=== PATIENT | female | born 1995 | race Two or more races ===

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

== ENCOUNTER 2017-06-26 12:53 | Emergency (ER) | payer MEDICAID ==
[~2017-06-26] VITALS: Ht 157.5 cm; Wt 116.2 kg
[~2017-06-26 12:53] MED LIST: PREN-96 PO
[2017-06-26 14:00] VITALS: BP 129/66
== END 2017-06-26 15:53 | disposition home or self-care (01) ==
LOC: ER 12:53
DX: H00.016 Hordeolum externum left eye, unspecified eyelid (principal); S00.12XA Contusion of left eyelid and periocular area, initial encounter; Y08.89XA Assault by other specified means, initial encounter; Y93.9 Activity, unspecified; Y92.89 Other specified places as the place of occurrence of the external cause; Y99.8 Other external cause status
CPT/HCPCS: 70450; 81025

== ENCOUNTER 2018-02-20 09:37 | Emergency (ER) | payer SELFPAY ==
[~2018-02-20] VITALS: Ht 157.5 cm; Wt 106.6 kg
[2018-02-20 10:22] LABS: Basophils # (auto) 0.1 uL; Basophils % (auto) 0.5 % (0.0-2.0); Eosinophils # (auto) 0.2 uL; Eosinophils % (auto) 1.8 % (0.0-7.0); Hematocrit 43.4 % (36.0-46.0); Hemoglobin 14.6 g/dL (12.2-16.2); Lymphocytes # (auto) 2.9 uL; Lymphocytes % (auto) 28.2 % (10.0-50.0); Mean Corpuscular Hemoglobin 31.7 pg (28.0-32.0); Mean Corpuscular Hgb Conc. 33.6 g/dL (32.0-36.0); Mean Corpuscular Volume 94.5 fL (80.0-100.0); Monocytes # (auto) 0.6 uL; Monocytes % (auto) 6.1 % (0.0-12.0); Neutrophils # (auto) 6.5 uL; Neutrophils % (auto) 63.4 % (37.0-80.0); Nucleated Red Blood Cells % 0.1 %; Platelet Count (auto) 210 10^3/uL (140-450); Red Blood Cells 4.59 10^6/uL (4.0-5.20); Red Cell Distribution Width 13.9 % (11.8-14.3); White Blood Cell 10.3 10^3/uL (4.4-10.8)
[2018-02-20 10:42] LABS: Albumin 3.8 g/dL (3.4-5.0); BUN/Creatinine Ratio 14.3; Bilirubin, Total 0.5 mg/dL (0.2-1.0); Calcium 8.6 mg/dL (8.5-10.1); Potassium 3.4 mmol/L (3.5-5.1); Total Protein 7.6 g/dL (6.4-8.2)
[2018-02-20] MEDS ORDERED: ACETAMINOPHEN 325 MG TAB PO ONE (14:32)
[2018-02-20 15:00] VITALS: BP 155/93
[2018-02-20] MEDS ORDERED: ACETAMINOPHEN 650 mg PER 20 mL UD PO ONE (15:00)
[2018-02-20 15:23] LABS: Alcohol, Urine < 3.0 mg/dL (0-5); Amphetamine Screen, Urine NEGATIVE (NEGATIVE); Barbiturate Scree,Urine NEGATIVE (NEGATIVE); Benzodiazephine Screen, Urine NEGATIVE (NEGATIVE); Cannabinoid Screen, Urine NEGATIVE (NEGATIVE); Cocaine Screen, Urine NEGATIVE (NEGATIVE); Opiate Scree,Urine NEGATIVE (NEGATIVE); Phencyclidine Screen, Urine NEGATIVE (NEGATIVE)
== END 2018-02-20 15:10 | disposition home or self-care (01) ==
LOC: ER 09:44
DX: K42.9 Umbilical hernia without obstruction or gangrene (principal); Z90.49 Acquired absence of other specified parts of digestive tract
CPT/HCPCS: 36415; 74176; 80053; 80307; 83690; 85025

== ENCOUNTER 2019-06-22 17:22 | Emergency (ER) | payer SELFPAY ==
[~2019-06-22] VITALS: Ht 160 cm; Wt 129.7 kg
[2019-06-22 17:39] VITALS: BP 132/76
[2019-06-22 18:28] LABS: Basophils # (auto) 0 uL; Basophils % (auto) 0.2 % (0.0-2.0); Eosinophils # (auto) 0.2 uL; Eosinophils % (auto) 2.2 % (0.0-7.0); Hematocrit 37.1 % (36.0-46.0); Hemoglobin 12.9 g/dL (12.2-16.2); Lymphocytes # (auto) 1.6 uL; Lymphocytes % (auto) 16.2 % (10.0-50.0); Mean Corpuscular Hemoglobin 33.4 pg (28.0-32.0); Mean Corpuscular Hgb Conc. 34.9 g/dL (32.0-36.0); Mean Corpuscular Volume 95.8 fL (80.0-100.0); Monocytes # (auto) 0.5 uL; Monocytes % (auto) 5.2 % (0.0-12.0); Neutrophils # (auto) 7.4 uL; Neutrophils % (auto) 76.2 % (37.0-80.0); Nucleated Red Blood Cells % 0.4 %; Platelet Count (auto) 183 10^3/uL (140-450); Red Blood Cells 3.87 10^6/uL (4.0-5.20); White Blood Cell 9.7 10^3/uL (4.4-10.8)
[2019-06-22 18:41] LABS: Albumin 3.1 g/dL (3.4-5.0); BUN/Creatinine Ratio 11.3; Calcium 9.1 mg/dL (8.5-10.1)
[2019-06-22 18:44] LABS: Bilirubin, Total 0.4 mg/dL (0.2-1.0); Total Protein 6.7 g/dL (6.4-8.2)
[2019-06-22 18:53] LABS: Urine Bacteria NONE SEEN /hpf (None Seen); Urine Blood Negative /uL (Negative); Urine Mucus FEW (None Seen); Urine WBC 3 /hpf (0 - 5)
== END 2019-06-22 23:22 | disposition left against medical advice (07) ==
LOC: ER 17:22
DX: R10.9 Unspecified abdominal pain (principal); Z53.21 Procedure and treatment not carried out due to patient leaving prior to being seen by health care provider
CPT/HCPCS: 36415; 80053; 81001; 84702; 85025

== ENCOUNTER 2019-07-17 20:53 | Observation (INO) | payer MEDICAID ==
[~2019-07-17] VITALS: Ht 160 cm; Wt 128.4 kg
--- NOTE | 2019-07-17 22:07 | NUR ---
2052 pt. arrives ambulatory with complaints of abdominal cramping and back pain started about 1 hour ago. Pt. denies vaginal bleeding, denies vaginal leaking, denies having sexual intercourse today.
--- NOTE | 2019-07-17 22:17 | NUR ---
2104 Pt. [facility] provided and urine sample collected from pt.
--- NOTE | 2019-07-17 22:30 | NUR ---
Dr. Payton erickson.
--- NOTE | 2019-07-17 22:50 | NUR ---
Pt. discharged ambulatory, no vaginal bleeding no vaginal leaking, contractions absent upon pappation and use of Picacho noted. Pt. given copies of DC instructions, both PTL precautions and Kick counts. Pt. to keep OB appointment scheduled on 06/28/[address] Myrick.
--- NOTE | 2019-07-17 22:58 | NUR ---
[id number] Dr. Cain return page. Reported all assessment findings reported pt. C/O back and abdominal pain. Reviewed previous Ultrasound and Pt. HX. Strip reviewed as well as heart rate per doppler, and UC absent from toco and palaption.
--- NOTE | 2019-07-17 23:01 | NUR ---
[address] Cain to discharge pt. with PTL precautions and kick counts and pt. to keep DrFederico appointment with Dr. Myrick as scheduled.
== END 2019-07-17 22:50 | disposition home or self-care (01) | DRG 566 ==
LOC: LDRP 20:53
PROVIDERS: ADMIT Specialist; ATTEND Specialist
DX: O26.892 Other specified pregnancy related conditions, second trimester (principal); M54.9 Dorsalgia, unspecified; R10.9 Unspecified abdominal pain; O99.89 Other specified diseases and conditions complicating pregnancy, childbirth and the puerperium; Z3A.22 22 weeks gestation of pregnancy
CPT/HCPCS: 59025; 81002; G0378

== ENCOUNTER 2019-08-05 15:46 | Observation (INO) | payer MEDICAID | END 2019-08-05 16:45 | disposition home or self-care (01) | DRG 566 | LOC: LDRP 15:46 | PROVIDERS: ADMIT Specialist; ATTEND Specialist | DX: O36.8130 Decreased fetal movements, third trimester, not applicable or unspecified (principal); O26.892 Other specified pregnancy related conditions, second trimester; M54.9 Dorsalgia, unspecified; O99.89 Other specified diseases and conditions complicating pregnancy, childbirth and the puerperium; R05 Cough; R50.9 Fever, unspecified; Z3A.25 25 weeks gestation of pregnancy | CPT/HCPCS: 59025; 81002; G0378 ==

== ENCOUNTER 2019-09-29 10:38 | Observation (INO) | payer MEDICAID | END 2019-09-29 12:35 | disposition home or self-care (01) | DRG 566 | LOC: LDRP 10:38 | PROVIDERS: ADMIT Obstetrics & Gynecology; ATTEND Obstetrics & Gynecology | DX: O36.8130 Decreased fetal movements, third trimester, not applicable or unspecified (principal); J02.9 Acute pharyngitis, unspecified; O99.513 Diseases of the respiratory system complicating pregnancy, third trimester; Z3A.33 33 weeks gestation of pregnancy | CPT/HCPCS: 59025; 76818; 81002; G0378 ==

== ENCOUNTER 2019-10-16 11:15 | Observation (INO) | payer MEDICAID ==
[2019-10-16 12:16] LABS: Basophils # (auto) 0 uL; Basophils % (auto) 0.3 % (0.0-2.0); Eosinophils # (auto) 0 uL; Eosinophils % (auto) 0.4 % (0.0-7.0); Hematocrit 32.7 % (36.0-46.0); Hemoglobin 11.6 g/dL (12.2-16.2); Lymphocytes # (auto) 1.4 uL; Lymphocytes % (auto) 16.4 % (10.0-50.0); Mean Corpuscular Hemoglobin 33.8 pg (28.0-32.0); Mean Corpuscular Hgb Conc. 35.6 g/dL (32.0-36.0); Monocytes # (auto) 0.5 uL; Monocytes % (auto) 6.2 % (0.0-12.0); Neutrophils # (auto) 6.7 uL; Neutrophils % (auto) 76.7 % (37.0-80.0); Platelet Count (auto) 179 10^3/uL (140-450); Red Blood Cells 3.44 10^6/uL (4.0-5.20); Red Cell Distribution Width 15.2 % (11.8-14.3); White Blood Cell 8.8 10^3/uL (4.4-10.8)
[2019-10-16 12:39] LABS: INR 0.99 (0.9-1.15); Partial Thromboplastin Time 28.5 sec (23.64-32.05)
[2019-10-16 12:41] LABS: Urine Bacteria FEW /hpf (None Seen); Urine Blood Negative /uL (Negative); Urine Mucus FEW (None Seen); Urine Specific Gravity 1.031 (1.001-1.035); Urine WBC 10 /hpf (0 - 5)
[2019-10-16 12:44] LABS: Albumin 2.5 g/dL (3.4-5.0); Calcium 8.5 mg/dL (8.5-10.1); Potassium 3.7 mmol/L (3.5-5.1)
[2019-10-16 12:48] LABS: BUN/Creatinine Ratio 14.8; Bilirubin, Total 0.4 mg/dL (0.2-1.0); Total Protein 6.1 g/dL (6.4-8.2); Uric Acid 4.8 mg/dL (2.6-6.0)
== END 2019-10-16 13:30 | disposition home or self-care (01) | DRG 566 ==
LOC: LDRP 11:15
PROVIDERS: ADMIT Specialist; ATTEND Specialist
DX: O13.3 Gestational [pregnancy-induced] hypertension without significant proteinuria, third trimester (principal); Z3A.35 35 weeks gestation of pregnancy
CPT/HCPCS: 36415; 59025; 80053; 81001; 81002; 84550; 85025; 85610; 85730; G0378

== ENCOUNTER 2019-10-18 08:56 | Observation (INO) | payer MEDICAID ==
[2019-10-18 09:53] LABS: Protein, Urine 11.9 mg/dL (0.0-11.9)
[2019-10-18 10:20] LABS: 24 Hr. Total Protein, Urine 373.6 mg/24 Hr (<149.1)
== END 2019-10-18 10:55 | disposition home or self-care (01) | DRG 566 ==
LOC: LDRP 08:56
PROVIDERS: ADMIT Obstetrics & Gynecology; ATTEND Obstetrics & Gynecology
DX: O13.3 Gestational [pregnancy-induced] hypertension without significant proteinuria, third trimester (principal); O99.89 Other specified diseases and conditions complicating pregnancy, childbirth and the puerperium; D72.829 Elevated white blood cell count, unspecified; Z3A.35 35 weeks gestation of pregnancy
CPT/HCPCS: 59025; 81002; 84156; G0378

== ENCOUNTER 2019-10-23 08:48 | Observation (INO) | payer MEDICAID | END 2019-10-23 10:11 | disposition home or self-care (01) | DRG 566 | LOC: LDRP 08:48 | PROVIDERS: ADMIT Specialist; ATTEND Specialist | DX: O13.3 Gestational [pregnancy-induced] hypertension without significant proteinuria, third trimester (principal); Z3A.36 36 weeks gestation of pregnancy | CPT/HCPCS: 59025; 76818; 81002; G0378 ==

== ENCOUNTER 2019-10-25 08:53 | Observation (INO) | payer MEDICAID ==
[~2019-10-25] VITALS: Ht 160 cm; Wt 132.9 kg
== END 2019-10-25 10:38 | disposition home or self-care (01) | DRG 566 ==
LOC: LDRP 08:53
PROVIDERS: ADMIT Obstetrics & Gynecology; ATTEND Obstetrics & Gynecology
DX: O13.3 Gestational [pregnancy-induced] hypertension without significant proteinuria, third trimester (principal); O26.893 Other specified pregnancy related conditions, third trimester; R10.30 Lower abdominal pain, unspecified; Z3A.36 36 weeks gestation of pregnancy
CPT/HCPCS: 59025; 76818; 81002; G0378

== ENCOUNTER 2019-10-26 23:38 | Observation (INO) | payer MEDICAID | END 2019-10-27 00:40 | disposition home or self-care (01) | DRG 566 | LOC: LDRP 23:38 | PROVIDERS: ADMIT Specialist; ATTEND Specialist | DX: O62.9 Abnormality of forces of labor, unspecified (principal); O26.893 Other specified pregnancy related conditions, third trimester; M54.9 Dorsalgia, unspecified; Z3A.37 37 weeks gestation of pregnancy | CPT/HCPCS: 59025; G0378 ==

== ENCOUNTER 2019-10-29 13:43 | Observation (INO) | payer MEDICAID | END 2019-10-29 15:00 | disposition home or self-care (01) | DRG 566 | LOC: LDRP 13:43 | PROVIDERS: ADMIT Specialist; ATTEND Specialist | DX: O13.3 Gestational [pregnancy-induced] hypertension without significant proteinuria, third trimester (principal); Z3A.37 37 weeks gestation of pregnancy | CPT/HCPCS: 59025; 76818; 81002; G0378 ==

== ENCOUNTER 2019-11-01 10:04 | Observation (INO) | payer MEDICAID ==
[2019-11-01 11:56] LABS: Basophils # (auto) 0 uL; Basophils % (auto) 0.3 % (0.0-2.0); Eosinophils # (auto) 0 uL; Eosinophils % (auto) 0.4 % (0.0-7.0); Hematocrit 33.8 % (36.0-46.0); Hemoglobin 11.5 g/dL (12.2-16.2); Lymphocytes # (auto) 1.7 uL; Lymphocytes % (auto) 18.2 % (10.0-50.0); Mean Corpuscular Hemoglobin 32.3 pg (28.0-32.0); Mean Corpuscular Hgb Conc. 33.9 g/dL (32.0-36.0); Mean Corpuscular Volume 95.3 fL (80.0-100.0); Monocytes # (auto) 0.5 uL; Monocytes % (auto) 5.8 % (0.0-12.0); Neutrophils # (auto) 7.1 uL; Neutrophils % (auto) 75.3 % (37.0-80.0); Nucleated Red Blood Cells % 0.1 %; Platelet Count (auto) 185 10^3/uL (140-450); Red Blood Cells 3.55 10^6/uL (4.0-5.20); Red Cell Distribution Width 15.4 % (11.8-14.3); White Blood Cell 9.5 10^3/uL (4.4-10.8)
[2019-11-01 12:13] LABS: Albumin 2.5 g/dL (3.4-5.0); Calcium 8.4 mg/dL (8.5-10.1); Potassium 3.6 mmol/L (3.5-5.1)
[2019-11-01 12:17] LABS: Bilirubin, Total 0.3 mg/dL (0.2-1.0); Total Protein 6.2 g/dL (6.4-8.2); Uric Acid 4.2 mg/dL (2.6-6.0)
== END 2019-11-01 11:50 | disposition home or self-care (01) | DRG 566 ==
LOC: LDRP 10:04
PROVIDERS: ADMIT Obstetrics & Gynecology; ATTEND Obstetrics & Gynecology
DX: O13.3 Gestational [pregnancy-induced] hypertension without significant proteinuria, third trimester (principal); Z3A.37 37 weeks gestation of pregnancy
CPT/HCPCS: 36415; 59025; 76818; 80053; 81002; 84550; 85025; G0378

== ENCOUNTER 2019-11-05 09:15 | Observation (INO) | payer MEDICAID ==
[~2019-11-05] VITALS: Ht 160 cm; Wt 132.9 kg
== END 2019-11-05 10:35 | disposition home or self-care (01) | DRG 566 ==
LOC: LDRP 09:15
PROVIDERS: ADMIT Specialist; ATTEND Specialist
DX: O12.13 Gestational proteinuria, third trimester (principal); O13.3 Gestational [pregnancy-induced] hypertension without significant proteinuria, third trimester; O40.3XX0 Polyhydramnios, third trimester, not applicable or unspecified; Z3A.38 38 weeks gestation of pregnancy
CPT/HCPCS: 59025; 76818; 81002; G0378

== ENCOUNTER 2019-11-08 08:55 | Observation (INO) | payer MEDICAID ==
[2019-11-08 10:45] LABS: Protein, Urine 18.4 mg/dL (0.0-11.9)
[2019-11-08 10:54] LABS: Urine Bacteria FEW /hpf (None Seen); Urine Blood Negative /uL (Negative); Urine Specific Gravity 1.012 (1.001-1.035); Urine WBC 10 /hpf (0 - 5)
[2019-11-08 13:03] LABS: 24 Hr. Total Protein, Urine 577.7 mg/24 Hr (<149.1)
== END 2019-11-08 11:05 | disposition home or self-care (01) | DRG 566 ==
LOC: LDRP 08:55
PROVIDERS: ADMIT Obstetrics & Gynecology; ATTEND Obstetrics & Gynecology
DX: O13.3 Gestational [pregnancy-induced] hypertension without significant proteinuria, third trimester (principal); Z3A.38 38 weeks gestation of pregnancy
CPT/HCPCS: 59025; 76818; 81001; 81002; 84156; G0378

== ENCOUNTER 2019-11-11 18:00 | Observation (INO) | payer MEDICAID | END 2019-11-11 19:45 | disposition home or self-care (01) | DRG 566 | LOC: LDRP 18:00 | PROVIDERS: ADMIT Specialist; ATTEND Specialist | DX: O26.893 Other specified pregnancy related conditions, third trimester (principal); R10.2 Pelvic and perineal pain; Z3A.39 39 weeks gestation of pregnancy | CPT/HCPCS: 59025; 81002; G0378 ==

== ENCOUNTER 2019-11-12 09:21 | Observation (INO) | payer MEDICAID | END 2019-11-12 10:30 | disposition home or self-care (01) | DRG 566 | LOC: LDRP 09:21 | PROVIDERS: ADMIT Obstetrics & Gynecology; ATTEND Obstetrics & Gynecology | DX: O13.3 Gestational [pregnancy-induced] hypertension without significant proteinuria, third trimester (principal); O36.63X0 Maternal care for excessive fetal growth, third trimester, not applicable or unspecified; O40.3XX0 Polyhydramnios, third trimester, not applicable or unspecified; O99.214 Obesity complicating childbirth; E66.01 Morbid (severe) obesity due to excess calories; O14.90 Unspecified pre-eclampsia, unspecified trimester; Z3A.39 39 weeks gestation of pregnancy | CPT/HCPCS: 59025; 81002; G0378 ==

== ENCOUNTER 2019-11-13 03:58 | Inpatient (IN) | payer MEDICAID ==
[~2019-11-13] VITALS: Ht 165.1 cm; Wt 132.9 kg
[2019-11-13] VITALS (16 sets, daily range): BP systolic 82–115; BP diastolic 45–73
[2019-11-13] MEDS ORDERED: LACTATED RINGER'S 1,000 ML IV SCH (04:14)
[2019-11-13 04:53] LABS: Basophils # (auto) 0 uL; Basophils % (auto) 0.3 % (0.0-2.0); Eosinophils # (auto) 0 uL; Eosinophils % (auto) 0.4 % (0.0-7.0); Hematocrit 33.6 % (36.0-46.0); Hemoglobin 11.4 g/dL (12.2-16.2); Lymphocytes % (auto) 14.1 % (10.0-50.0); Mean Corpuscular Hemoglobin 32.1 pg (28.0-32.0); Mean Corpuscular Hgb Conc. 34.1 g/dL (32.0-36.0); Mean Corpuscular Volume 94.1 fL (80.0-100.0); Monocytes # (auto) 0.7 uL; Monocytes % (auto) 9.3 % (0.0-12.0); Neutrophils # (auto) 5.4 uL; Neutrophils % (auto) 75.9 % (37.0-80.0); Platelet Count (auto) 158 10^3/uL (140-450); Red Blood Cells 3.56 10^6/uL (4.0-5.20); Red Cell Distribution Width 15.4 % (11.8-14.3); White Blood Cell 7.1 10^3/uL (4.4-10.8)
[2019-11-13 05:02] LABS: Urine Bacteria FEW /hpf (None Seen); Urine Blood Negative /uL (Negative); Urine Mucus FEW (None Seen); Urine WBC 12 /hpf (0 - 5)
[2019-11-13 05:09] LABS: INR 0.98 (0.9-1.15)
[2019-11-13 05:14] LABS: Alcohol, Urine < 3.0 mg/dL (0-5); Amphetamine Screen, Urine NEGATIVE (NEGATIVE); Barbiturate Scree,Urine NEGATIVE (NEGATIVE); Benzodiazephine Screen, Urine NEGATIVE (NEGATIVE); Cannabinoid Screen, Urine NEGATIVE (NEGATIVE); Cocaine Screen, Urine NEGATIVE (NEGATIVE); Opiate Scree,Urine NEGATIVE (NEGATIVE); Phencyclidine Screen, Urine NEGATIVE (NEGATIVE)
[2019-11-13 05:14] LABS: Albumin 2.5 g/dL (3.4-5.0); Potassium 3.7 mmol/L (3.5-5.1)
[2019-11-13 05:19] LABS: Bilirubin, Total 0.5 mg/dL (0.2-1.0); Total Protein 6.5 g/dL (6.4-8.2)
[2019-11-13] MEDS ORDERED: LIDOCAINE 1% HCL (LOCAL ANESTH.) INJ 20ML MDV ONE (07:16)
[2019-11-13] MEDS ORDERED: TETRACAINE 1% INJ 2 ML VIAL IJ ONE (07:16)
[2019-11-13] MEDS ORDERED: SUCCINYLCHOLINE CHLORIDE 20 MG/ML 10ML VIAL IV ONE (07:18)
[2019-11-13] MEDS ORDERED: fentaNYL CITRATE 100 MCG/2 ML VL ONE (07:24)
[2019-11-13] MEDS ORDERED: MIDAZOLAM HCL 1MG/1ML-2 ML VIAL ONE ×2 (07:24→07:48)
[2019-11-13] MEDS ORDERED: ceFAZolin 1GM/50ML 50 ML IV SCH (07:30)
[2019-11-13] MEDS ORDERED: ONDANSETRON HCL 4 MG/2 ML VIAL IV PRN (07:30)
[2019-11-13] MEDS ORDERED: ePHEDrine SULFATE 50 MG/ML AMP ONE (07:36)
[2019-11-13] MEDS ORDERED: ceFAZolin 1GM VL ONE (07:36)
[2019-11-13] MEDS ORDERED: OXYTOCIN 10 UNIT/ML 10ML VIAL ONE (07:36)
[2019-11-13] MEDS ORDERED: ONDANSETRON HCL 4 MG/2 ML VIAL ONE (07:36)
[2019-11-13] MEDS ORDERED: SODIUM CHLORIDE LOCK 10 ML ONE (07:36)
[2019-11-13] MEDS ORDERED: BUPIVACAINE/DEXTROSE MPF 0.75% 2 ML AMP IT ONE (07:54)
[2019-11-13] MEDS ORDERED: EPINEPHrine HCL 1 MG/1 ML AMP ONE (07:54)
--- NOTE | 2019-11-13 08:00 | NUR ---
CALLED PACU FOR INFANT TO INITIATE . PER Karla HATHAWAY TOWN MANAGER MOTHER STATED SHE WANTS TO BOTTLE FEED. WILL GIVEN FORMULA PER MOTHERS REQUEST.
[2019-11-13] MEDS ORDERED: NALOXONE HCL 0.4 MG/ML VIAL IV PRN (09:15)
[2019-11-13] MEDS ORDERED: diphenhdrAMINE HCL 50 MG/1 ML VL IV PRN (09:15)
[2019-11-13] MEDS ORDERED: MORPHINE SULFATE 4 MG/ML SYR/VIAL IV PRN (09:15)
[2019-11-13] MEDS ORDERED: fentaNYL CITRATE 100 MCG/2 ML VL IV PRN (09:15)
[2019-11-13] MEDS ORDERED: METOCLOPRAMIDE HCL 5MG/ml INJ 2ml VIAL IV PRN (09:15)
[2019-11-13] MEDS ORDERED: HYDROmorphone HCL 2 MG/ML VL IV PRN (09:15)
--- NOTE | 2019-11-13 09:31 | NUR ---
REPORT RECEIVED FROM LIFE ENRICHMENT MANAGER ANTIONE HATHAWAY, NOTIFIED THAT PT WILL BE OVER SHORTLY. AWAITING ARRIVAL.
--- NOTE | 2019-11-13 09:40 | NUR ---
Post Op for LDRP: Received patient from PACU via bed to room 1-7B from [employer]ETHOD[employer] ARCHITECT Karla Amado. Patient A/A/Ox4, abdominal binder and bilateral SCD's are in place and compressing pts bilateral lower extremities, 30units pitocin in 1000ml LR bag per WEBMETHODS ARCHITECT Karla Amado placed on pump and infusing per order, incisional site dressing clean/dry/intact and Beckett Catheter to gravity draining clear yellow urine. Incentive Spirometer at bedside and instruction on proper use with return demonstration done by patient. Sahara care provided by this RN, new pad and white amanda placed under patient. Pt brought over on 1 liter oxygen, pts o2 saturation now is 91%, vital sings stable. Pts lung sounds are clear bilaterally, pts respirations are even and nonlabored. Will continue to monitor.
--- NOTE | 2019-11-13 10:10 | NUR ---
PTS VITAL SIGNS STABLE, 1 LITER O2 REMOVED, PT 02 SATURATION ON ROOM AIR IS 95%, NO DISTRESS NOTED. WILL CONTINUE TO MONITOR.
--- NOTE | 2019-11-13 11:00 | NUR ---
Report received from Tatiana Garcia RN on stable pt. Assumed care.
--- NOTE | 2019-11-13 11:00 | NUR ---
REPORT GIVEN TO Rohan VIRGEN ON STABLE PATIENT, PT IS ON ROOM AIR, O2 SATURATION 95%, RESPIRATIONS EVEN AND NONLABORED, PTS ABDOMINAL DRESSING CLEAN, DRY, INTACT, NO DRAINAGE NOTED, FUNDUS IS FIRM 2 BELOW UMBILICUS, SMALL RUBRA BLEEDING NOTED, RELINQUISHED CARE.
--- NOTE | 2019-11-13 12:00 | NUR ---
Lower abdominal incision dressing c/d/i, abdominal binder in place and scd's on. Incentive spirometer at bedside, pt educated on use and return demonstration returned. Maria care and catheter care provided. New maria pad applied and new underpad placed. Pt tolerated well, no signs of distress or discomfort noted. Addendum: 11/13/19 at 1345 by Maricarmen Rivera RN Amended: Links added.
[2019-11-13] MEDS: LACT. RINGERS/OXYTOCIN 20UNITS 1,000 ML IV SCH ×3 (12:41→21:56)
--- NOTE | 2019-11-13 13:21 | NUR ---
BP noted to be low, pt denies any dizziness. 500 LR fluid bolus started. Maria care and catheter care provided with a small amount of bleeding noted. New maria pad and underpad applied.
--- NOTE | 2019-11-13 13:50 | NUR ---
Dr. Myrick informed of all VS, hourly urine outputs and bleeding trends. Dr. Myrick also informed that 500 LR fluid bolus started. No new orders received at this time, continue to monitor pt.
[2019-11-13] MEDS: ceFAZolin 1GM/50ML 50 ML IV SCH (15:50)
--- NOTE | 2019-11-13 17:55 | NUR ---
Maria care and catheter care provided. New underpad and maria pad placed. Pt tolerated well, no signs of distress or discomfort noted.
--- NOTE | 2019-11-13 18:25 | NUR ---
Report given to Rohan Garcia RN on stable pt. Relinquished care. Addendum: 11/13/19 at 1841 by Maricarmen Rivera RN Amended: Links added.
[2019-11-13 19:48] LABS: Basophils # (auto) 0 uL; Basophils % (auto) 0.2 % (0.0-2.0); Eosinophils # (auto) 0 uL; Eosinophils % (auto) 0.7 % (0.0-7.0); Hematocrit 28.7 % (36.0-46.0); Hemoglobin 9.8 g/dL (12.2-16.2); Lymphocytes % (auto) 17.1 % (10.0-50.0); Mean Corpuscular Hemoglobin 32.4 pg (28.0-32.0); Mean Corpuscular Hgb Conc. 34.3 g/dL (32.0-36.0); Mean Corpuscular Volume 94.5 fL (80.0-100.0); Monocytes # (auto) 0.4 uL; Monocytes % (auto) 7.7 % (0.0-12.0); Neutrophils # (auto) 4.2 uL; Neutrophils % (auto) 74.3 % (37.0-80.0); Platelet Count (auto) 138 10^3/uL (140-450); Red Blood Cells 3.04 10^6/uL (4.0-5.20); Red Cell Distribution Width 15.6 % (11.8-14.3); White Blood Cell 5.6 10^3/uL (4.4-10.8)
[2019-11-13] MEDS: MORPHINE SULF INJ 2 MG/ML SYRINGE 1ML IV PRN (20:34)
[2019-11-13] MEDS: guaiFENesin-DM 100/10mg/5ml SYR PO PRN (21:00)
--- NOTE | 2019-11-13 21:30 | NUR ---
Ambulation: Patient OOB with standby assistance by RN. Patient ambulated to chair with steady gait. Patient remains with alston catheter at this time. Clean gown provided and bed linen changed. Patient ambulated in hallway x1 and back to bed with steady gait and no distress noted.
[2019-11-13] MEDS ORDERED: ACETAMINOPHEN IV 1000 MG/100ML (10MG/ML) IV ONE (22:00)
[2019-11-14] MEDS: ceFAZolin 1GM/50ML 50 ML IV SCH ×4 (00:06→22:04)
[2019-11-14 03:00] VITALS: BP 99/49
[2019-11-14] MEDS: MORPHINE SULF INJ 2 MG/ML SYRINGE 1ML IV PRN ×2 (03:11→07:45)
[2019-11-14] MEDS: guaiFENesin-DM 100/10mg/5ml SYR PO PRN ×2 (03:11→08:09)
[2019-11-14] MEDS: LACT. RINGERS/OXYTOCIN 20UNITS 1,000 ML IV SCH (03:29)
--- NOTE | 2019-11-14 04:50 | NUR ---
Alston catheter dc'd Order to discontinue alston catheter. Alston dc'd with clean technique following deflation of balloon. Patient tolerated well with no complaints of pain. Continue care.
--- NOTE | 2019-11-14 06:03 | NUR ---
Report received from Rohan Garcia RN on stable pt. Assumed care. Addendum: 11/14/19 at 1327 by Maricarmen Rivera RN Amended: Links added.
[2019-11-14 06:25] LABS: Basophils # (auto) 0 uL; Basophils % (auto) 0.4 % (0.0-2.0); Eosinophils # (auto) 0 uL; Eosinophils % (auto) 0.5 % (0.0-7.0); Hematocrit 30.8 % (36.0-46.0); Hemoglobin 10.7 g/dL (12.2-16.2); Lymphocytes # (auto) 0.9 uL; Lymphocytes % (auto) 12.5 % (10.0-50.0); Mean Corpuscular Hemoglobin 33.1 pg (28.0-32.0); Mean Corpuscular Hgb Conc. 34.8 g/dL (32.0-36.0); Mean Corpuscular Volume 94.9 fL (80.0-100.0); Monocytes # (auto) 0.4 uL; Monocytes % (auto) 5.9 % (0.0-12.0); Neutrophils # (auto) 5.8 uL; Neutrophils % (auto) 80.7 % (37.0-80.0); Platelet Count (auto) 149 10^3/uL (140-450); Red Blood Cells 3.25 10^6/uL (4.0-5.20); Red Cell Distribution Width 15.7 % (11.8-14.3); White Blood Cell 7.2 10^3/uL (4.4-10.8)
[2019-11-14 07:05] VITALS: BP 107/67
--- NOTE | 2019-11-14 07:05 | NUR ---
Lower abdominal incision open to air, well approximated with luc intact. No redness, drainage, or bleeding noted from site. Abdominal binder in place. Incentive spirometer at bedside, pt educated on the importance of using IS and also ambulating. Pt verbalizes understanding. Addendum: 11/14/19 at 1357 by Maricarmen Rivera RN Amended: Links added.
[2019-11-14] MEDS ORDERED: OXYTOCIN 10UNIT/ML 1ML VIAL ONE (07:11)
[2019-11-14] MEDS ORDERED: miSOPROStol 100 mcg TAB ONE (07:15)
[2019-11-14] MEDS ORDERED: METHYLERGONOVINE MALEATE 0.2 MG/ML AMP IM ONE (07:15)
[2019-11-14] MEDS ORDERED: LACTATED RINGER'S 1,000 ML IV SCH (08:42)
[2019-11-14] MEDS ORDERED: BISACODYL 10 MG RECT SUPP PR PRN (08:45)
[2019-11-14] MEDS ORDERED: HYDROcodone-ACET 5/325MG TAB PO PRN (08:45)
[2019-11-14] MEDS: IBUPROFEN 800 MG TAB PO PRN ×2 (09:38→20:52)
[2019-11-14] MEDS: DOCUSATE CALCIUM 240 MG CAP PO SCH (09:38)
[2019-11-14 11:07] VITALS: BP 124/82
[2019-11-14] MEDS: SIMETHICONE 80 MG CHEWABLE TABLET PO SCH ×3 (12:08→22:04)
[2019-11-14] MEDS: HYDROcodone-ACET 5/325MG TAB PO PRN ×2 (12:08→17:45)
[2019-11-14 14:51] VITALS: BP 111/71
--- NOTE | 2019-11-14 18:25 | NUR ---
Report given to Dylon Wilkerson RN on stable pt. Relinquished care. Addendum: 11/14/19 at 1841 by Maricarmen Rivera RN Amended: Links added.
[2019-11-14 19:00] VITALS: BP 99/66
[2019-11-14 22:49] VITALS: BP 97/51
[2019-11-15] MEDS: HYDROcodone-ACET 5/325MG TAB PO PRN ×5 (00:24→22:55)
[2019-11-15 02:57] VITALS: BP 99/60
[2019-11-15] MEDS: SIMETHICONE 80 MG CHEWABLE TABLET PO SCH ×4 (05:36→21:58)
[2019-11-15] MEDS: ceFAZolin 1GM/50ML 50 ML IV SCH ×3 (05:37→21:58)
[2019-11-15] MEDS: IBUPROFEN 800 MG TAB PO PRN ×2 (06:02→15:30)
--- NOTE | 2019-11-15 10:00 | NUR ---
Explained how to use breast pump manually and with electric pump.
[2019-11-15] MEDS: DOCUSATE CALCIUM 240 MG CAP PO SCH (10:29)
[2019-11-15 11:00] VITALS: BP 98/58
[2019-11-15 16:00] VITALS: BP 122/82
[2019-11-15 18:30] VITALS: BP 138/64
[2019-11-15] MEDS ORDERED: guaiFENesin-DM 100/10mg/5ml SYR ONE (19:02)
[2019-11-15] MEDS: guaiFENesin-DM 100/10mg/5ml SYR PO PRN (19:12)
[2019-11-15 22:59] VITALS: BP 98/61
[2019-11-16] MEDS: IBUPROFEN 800 MG TAB PO PRN (02:56)
[2019-11-16 03:00] VITALS: BP 112/66
[2019-11-16] MEDS: SIMETHICONE 80 MG CHEWABLE TABLET PO SCH (05:30)
[2019-11-16] MEDS: ceFAZolin 1GM/50ML 50 ML IV SCH (05:30)
[2019-11-16] MEDS: HYDROcodone-ACET 5/325MG TAB PO PRN ×2 (05:40→11:04)
[2019-11-16 07:00] VITALS: BP 120/81
[2019-11-16] MEDS: DOCUSATE CALCIUM 240 MG CAP PO SCH (10:55)
[2019-11-16 11:00] VITALS: BP 124/88
--- NOTE | 2019-11-16 11:40 | NUR ---
C/S Staple Removal DC Note: Orders received to remove luc. Luc removed using sterile technique. Lower abdominal incision approximated, no drainage/redness/inflammation visualized at time of removal. Steri-strips applied. Education provided on incisional care. Patient verbalized understanding and willingness to comply to instructions/teaching provided.
--- NOTE | 2019-11-16 11:42 | NUR ---
Discharge: Discharge instructions given as ordered. Pt encouraged to follow up with CLASS C DRIVER as instructed. All questions and concerns addressed. Patient verbalized understanding. Medication reconciliation completed and copy given to patient. All required/requested vaccines given and copies of vaccinations given to patient. Patient encouraged to prepare to depart unit. Signed: 11/16/19 at 1143 by KRISTOPHER BLACK SN <Co-Signature Required> Co-Signed: 11/16/19 at 1143 by Lucia Morgan RN
--- NOTE | 2019-11-16 12:00 | NUR ---
Discharge: Patient ambulated to vehicle with all personal belongings, accompanied by staff and family member. No distress noted at time of departure, no adverse changes in status since initial assessment. Signed: 11/16/19 at 1211 by KRISTOPHER BLACK <Co-Signature Required> Co-Signed: 11/16/19 at 1211 by Lucia Morgan RN
== END 2019-11-16 12:00 | disposition home or self-care (01) | DRG 540 ==
LOC: LDRP 03:58
PROVIDERS: ADMIT Obstetrics & Gynecology; ATTEND Obstetrics & Gynecology
PROC: 10D00Z1 Extraction of Products of Conception, Low, Open Approach (ICD-10-PCS; principal; 2019-11-13 07:31)
DX: O36.63X0 Maternal care for excessive fetal growth, third trimester, not applicable or unspecified (principal); E66.01 Morbid (severe) obesity due to excess calories; O40.3XX0 Polyhydramnios, third trimester, not applicable or unspecified; D64.9 Anemia, unspecified; O99.02 Anemia complicating childbirth; O99.214 Obesity complicating childbirth; Z3A.39 39 weeks gestation of pregnancy; Z37.0 Single live birth
CPT/HCPCS: 36415; 51702; 59025; 80053; 80307; 81001; 84112; 85025; 85610; 85730; 86592; 86850; 86900; 86901; 94762; 96361; 96366; 96374; 96375; G0378; J0131; J0171; J0330; J0690; J2001; J2250; J2405; J2590

== ENCOUNTER 2023-01-08 14:06 | Emergency (ER) | payer MEDICAID ==
[~2023-01-08] VITALS: Ht 160 cm; Wt 142.0 kg
[2023-01-08 14:42] VITALS: BP 117/78
[2023-01-08 15:17] LABS: Basophils # (auto) 0 10 ^3/uL (0-0.2); Basophils % (auto) 0.8 % (0.0-2.0); Eosinophils # (auto) 0.1 10 ^3/uL (0-0.8); Eosinophils % (auto) 1.5 % (0.0-7.0); Hematocrit 38.7 % (36.0-46.0); Hemoglobin 13.4 g/dL (12.2-16.2); Lymphocytes # (auto) 1.2 10 ^3/uL (0.4-5.4); Lymphocytes % (auto) 20.7 % (10.0-50.0); Mean Corpuscular Hemoglobin 31.9 pg (28.0-32.0); Mean Corpuscular Hgb Conc. 34.6 g/dL (32.0-36.0); Mean Corpuscular Volume 92.1 fL (80.0-100.0); Monocytes # (auto) 0.4 10 ^3/uL (0-1.3); Monocytes % (auto) 6.9 % (0.0-12.0); Neutrophils % (auto) 70.1 % (37.0-80.0); Nucleated Red Blood Cells % 0.1 %; Red Cell Distribution Width 15.2 % (11.8-14.3); White Blood Cell 5.7 10^3/uL (4.4-10.8)
[2023-01-08 15:52] LABS: Albumin 3.6 g/dL (3.4-5.0); BUN/Creatinine Ratio 11.9 (10.0-20.0); Calcium 8.7 mg/dL (8.5-10.1); Potassium 4.2 mmol/L (3.5-5.1)
[2023-01-08 15:56] LABS: Bilirubin, Total 0.5 mg/dL (0.2-1.0); Total Protein 6.3 g/dL (6.4-8.2)
== END 2023-01-08 18:59 | disposition home or self-care (01) ==
LOC: ER 14:06
DX: K62.5 Hemorrhage of anus and rectum (principal)
CPT/HCPCS: 36415; 80053; 85025

== ENCOUNTER 2023-10-04 09:51 | Emergency (ER) | payer MEDICAID ==
[~2023-10-04] VITALS: Ht 162.6 cm; Wt 115.7 kg
[2023-10-04 11:00] LABS: Urine Bacteria FEW /hpf (None Seen); Urine Blood Negative /uL (Negative); Urine Clarity Clear (Clear); Urine Color Yellow (Yellow); Urine Protein, UAD Negative (Negative); Urine Specific Gravity 1.013 (1.001-1.035); Urine Urobilinogen Normal (Negative); Urine WBC 1 /hpf (0 - 5); Urine pH 5.5 (5.0-8.0)
[2023-10-04 13:49] VITALS: BP 124/70; TEMP 98
[2023-10-04 13:51] VITALS: PULSE 88; RESP 18; O2SAT 97
== END 2023-10-04 14:14 | disposition home or self-care (01) ==
LOC: ER 09:51
DX: O26.891 Other specified pregnancy related conditions, first trimester (principal); L50.9 Urticaria, unspecified; Z90.49 Acquired absence of other specified parts of digestive tract; Z3A.01 Less than 8 weeks gestation of pregnancy
CPT/HCPCS: 81001; 81025

== ENCOUNTER 2023-10-17 09:05 | Emergency (ER) | payer MEDICAID ==
[~2023-10-17] VITALS: Ht 157.5 cm; Wt 112.5 kg
[2023-10-17 09:39] LABS: Urine Epithelial Cast None Seen /hpf (<5)
[2023-10-17 09:40] VITALS: BP 124/65; PULSE 83; RESP 18; TEMP 97.9; O2SAT 100
[2023-10-17 09:53] LABS: Urine Bacteria FEW /hpf (None Seen); Urine Blood Negative /uL (Negative); Urine Clarity Clear (Clear); Urine Color Yellow (Yellow); Urine Mucus FEW (None Seen); Urine Protein, UAD Negative (Negative); Urine Specific Gravity 1.019 (1.001-1.035); Urine WBC 2 /hpf (0 - 5)
[2023-10-17] MEDS ORDERED: NITR-52 PO (12:38)
== END 2023-10-17 12:51 | disposition home or self-care (01) ==
LOC: ER 09:05
DX: O20.8 Other hemorrhage in early pregnancy (principal); R10.2 Pelvic and perineal pain; R82.71 Bacteriuria; Z90.49 Acquired absence of other specified parts of digestive tract; Z79.899 Other long term (current) drug therapy; Z3A.08 8 weeks gestation of pregnancy
CPT/HCPCS: 36415; 76801; 81001; 84702

== ENCOUNTER 2024-01-18 17:23 | Observation (INO) | payer MEDICAID ==
[~2024-01-18 17:23] MED LIST changes: +NITR-52 PO
[2024-01-18 18:37] LABS: Urine Bacteria None Seen /hpf (None Seen)
[2024-01-18 18:43] LABS: Basophils # (auto) 0 10 ^3/uL (0-0.2); Basophils % (auto) 0.2 % (0.0-2.0); Eosinophils # (auto) 0.1 10 ^3/uL (0-0.8); Eosinophils % (auto) 0.8 % (0.0-7.0); Hematocrit 35.1 % (36.0-46.0); Hemoglobin 11.9 g/dL (12.2-16.2); Lymphocytes # (auto) 1.3 10 ^3/uL (0.4-5.4); Lymphocytes % (auto) 13.2 % (10.0-50.0); Mean Corpuscular Hemoglobin 33.2 pg (28.0-32.0); Mean Corpuscular Hgb Conc. 33.9 g/dL (32.0-36.0); Monocytes # (auto) 0.5 10 ^3/uL (0-1.3); Monocytes % (auto) 4.9 % (0.0-12.0); Neutrophils # (auto) 7.7 10 ^3/uL (1.6-8.6); Neutrophils % (auto) 80.9 % (37.0-80.0); Nucleated Red Blood Cells % 0.1 %; Red Blood Cells 3.58 10^6/uL (4.0-5.20); White Blood Cell 9.6 10^3/uL (4.4-10.8)
[2024-01-18 18:48] LABS: Urine Blood Negative /uL (Negative); Urine Clarity Clear (Clear); Urine Color Light-Yellow (Yellow); Urine Protein, UAD Negative (Negative); Urine Specific Gravity 1.018 (1.001-1.035); Urine Urobilinogen Normal (Negative); Urine WBC 1 /hpf (0 - 5)
[2024-01-18 18:57] LABS: Alanine Aminotransferase 11 U/L (7-40); Albumin 3.8 g/dL (3.2-4.8); Alkaline Phosphatase 81 U/L (46-116); Anion Gap 9 (5-15); Aspartate Aminotransferase 14 U/L (13-40); BUN/Creatinine Ratio 12.1 (10.0-20.0); Blood Urea Nitrogen 7 mg/dL (9-23); Calcium 8.7 mg/dL (8.5-10.1); Carbon Dioxide 19 mmol/L (20-30); Chloride 112 mmol/L (98-107); Glucose 79 mg/dL (74-106); Potassium 3.7 mmol/L (3.5-5.1); Sodium 140 mmol/L (136-145)
[2024-01-18 18:58] LABS: Bilirubin, Total 0.3 mg/dL (0.2-1.0); Total Protein 6.4 g/dL (5.7-8.2)
[2024-01-18 19:16] LABS: Uric Acid 5.1 mg/dL (3.1-7.8)
[2024-01-18] MEDS ORDERED: URSO300C2 PO (19:37)
== END 2024-01-18 19:57 | disposition home or self-care (01) ==
LOC: LDRP 17:23
PROVIDERS: ADMIT Obstetrics & Gynecology; ATTEND Obstetrics & Gynecology
DX: O26.642 Intrahepatic cholestasis of pregnancy, second trimester (principal); K83.1 Obstruction of bile duct; O26.893 Other specified pregnancy related conditions, third trimester; L29.9 Pruritus, unspecified; Z3A.23 23 weeks gestation of pregnancy
CPT/HCPCS: 36415; 80053; 81001; 84550; 85025; 94760; G0378

== ENCOUNTER 2024-03-07 08:25 | Observation (INO) | payer MEDICAID ==
[~2024-03-07 08:25] MED LIST changes: +URSO300C2 PO
== END 2024-03-07 16:18 | disposition home or self-care (01) ==
LOC: LDRP 14:25 → UNDOADMOB 14:25 → LDRP 14:38
PROVIDERS: ADMIT Obstetrics & Gynecology; ATTEND Obstetrics & Gynecology
DX: O26.643 Intrahepatic cholestasis of pregnancy, third trimester (principal); K83.1 Obstruction of bile duct; O26.893 Other specified pregnancy related conditions, third trimester; L29.9 Pruritus, unspecified; Z3A.30 30 weeks gestation of pregnancy; Z91.040 Latex allergy status
CPT/HCPCS: 59025; 76818; 81002; 94760; G0378

== ENCOUNTER 2024-03-11 10:13 | Observation (INO) | payer MEDICAID ==
[~2024-03-11 10:13] MED LIST changes: -NITR-52 PO
== END 2024-03-11 17:08 | disposition home or self-care (01) ==
LOC: LDRP 13:59
PROVIDERS: ADMIT Obstetrics & Gynecology; ATTEND Obstetrics & Gynecology
DX: O26.643 Intrahepatic cholestasis of pregnancy, third trimester (principal); K83.1 Obstruction of bile duct; O40.3XX0 Polyhydramnios, third trimester, not applicable or unspecified; O26.893 Other specified pregnancy related conditions, third trimester; M54.50 Low back pain, unspecified; R10.11 Right upper quadrant pain; Z3A.31 31 weeks gestation of pregnancy; Z91.040 Latex allergy status
CPT/HCPCS: 59025; 76818; 81002; 94760; G0378

== ENCOUNTER 2024-03-14 08:29 | Observation (INO) | payer MEDICAID ==
[~2024-03-14] VITALS: Ht 160 cm; Wt 119.3 kg
[2024-03-14] MEDS: TERBUTALINE SULFATE 1 MG/ML 1ML VIAL SC SCH (16:03)
[2024-03-16] MEDS ORDERED: URSO300C2 PO ×2 (10:16)
== END 2024-03-14 16:48 | disposition home or self-care (01) ==
LOC: UNDOADMOB 13:47 → LDRP 13:47
PROVIDERS: ADMIT Obstetrics & Gynecology; ATTEND Obstetrics & Gynecology
DX: O13.3 Gestational [pregnancy-induced] hypertension without significant proteinuria, third trimester (principal); O26.643 Intrahepatic cholestasis of pregnancy, third trimester; K83.1 Obstruction of bile duct; O40.3XX0 Polyhydramnios, third trimester, not applicable or unspecified; Z3A.31 31 weeks gestation of pregnancy; Z91.040 Latex allergy status
CPT/HCPCS: 59025; 76818; 81002; 82948; 96372; G0378; J3105

== ENCOUNTER 2024-03-16 09:13 | Observation (INO) | payer MEDICAID ==
[~2024-03-16] VITALS: Ht 165.1 cm; Wt 81.6 kg
[2024-03-16] MEDS: BETAMETHASONE ACET (30mg/5ml) 5ml Vial 6mg/ml IM ONE (10:06)
[2024-03-16] MEDS ORDERED: URSO300C2 PO (10:16)
== END 2024-03-16 10:25 | disposition home or self-care (01) ==
LOC: LDRP 09:13
PROVIDERS: ADMIT Obstetrics & Gynecology; ATTEND Obstetrics & Gynecology
DX: O60.03 Preterm labor without delivery, third trimester (principal); O26.643 Intrahepatic cholestasis of pregnancy, third trimester; K83.1 Obstruction of bile duct; Z3A.31 31 weeks gestation of pregnancy
CPT/HCPCS: 59025; 81002; 94760; 96372; G0378; J0702

== ENCOUNTER 2024-03-17 09:00 | Observation (INO) | payer MEDICAID ==
[2024-03-17] MEDS: BETAMETHASONE ACET (30mg/5ml) 5ml Vial 6mg/ml IM ONE (11:26)
== END 2024-03-17 11:30 | disposition home or self-care (01) ==
LOC: LDRP 09:00
PROVIDERS: ADMIT Obstetrics & Gynecology; ATTEND Obstetrics & Gynecology
DX: O40.3XX0 Polyhydramnios, third trimester, not applicable or unspecified (principal); O26.643 Intrahepatic cholestasis of pregnancy, third trimester; K83.1 Obstruction of bile duct; O60.03 Preterm labor without delivery, third trimester; Z3A.31 31 weeks gestation of pregnancy; Z91.040 Latex allergy status
CPT/HCPCS: 59025; 76818; 81002; 94760; 96372; G0378

== ENCOUNTER 2024-03-21 09:20 | Observation (INO) | payer MEDICAID | END 2024-03-21 12:45 | disposition home or self-care (01) | LOC: UNDOADMOB 10:42 → LDRP 10:42 → UNDODISOB 12:45 | PROVIDERS: ADMIT Obstetrics & Gynecology; ATTEND Obstetrics & Gynecology | DX: O40.3XX0 Polyhydramnios, third trimester, not applicable or unspecified (principal); O26.643 Intrahepatic cholestasis of pregnancy, third trimester; K83.1 Obstruction of bile duct; O60.03 Preterm labor without delivery, third trimester; Z3A.32 32 weeks gestation of pregnancy; Z91.040 Latex allergy status | CPT/HCPCS: 59025; 76818; 81002; 94760; G0378 ==

== ENCOUNTER 2024-03-25 10:40 | Observation (INO) | payer MEDICAID ==
[~2024-03-25] VITALS: Ht 160 cm; Wt 118.8 kg
== END 2024-03-25 12:15 | disposition home or self-care (01) ==
LOC: UNDOADMOB 10:40 → LDRP 10:40
PROVIDERS: ADMIT Obstetrics & Gynecology; ATTEND Obstetrics & Gynecology
DX: O40.3XX0 Polyhydramnios, third trimester, not applicable or unspecified (principal); O26.643 Intrahepatic cholestasis of pregnancy, third trimester; K83.1 Obstruction of bile duct; O60.03 Preterm labor without delivery, third trimester; Z3A.32 32 weeks gestation of pregnancy
CPT/HCPCS: 59025; 76818; 81002; 94760; G0378

== ENCOUNTER 2024-03-28 08:54 | Observation (INO) | payer MEDICAID ==
[~2024-03-28] VITALS: Ht 160 cm; Wt 117.9 kg
[2024-03-28] MEDS: TERBUTALINE SULFATE 1 MG/ML 1ML VIAL SC SCH (10:27)
[2024-03-28] MEDS ORDERED: NIF10C PO (11:15)
== END 2024-03-28 11:26 | disposition home or self-care (01) ==
LOC: LDRP 08:54
PROVIDERS: ADMIT Obstetrics & Gynecology; ATTEND Obstetrics & Gynecology
DX: O40.3XX0 Polyhydramnios, third trimester, not applicable or unspecified (principal); O26.643 Intrahepatic cholestasis of pregnancy, third trimester; K83.1 Obstruction of bile duct; O60.03 Preterm labor without delivery, third trimester; Z3A.33 33 weeks gestation of pregnancy; Z91.040 Latex allergy status
CPT/HCPCS: 59025; 76818; 81002; 94760; 96372; G0378; J3105

== ENCOUNTER 2024-04-01 08:23 | Observation (INO) | payer MEDICAID ==
[~2024-04-01 08:23] MED LIST changes: +NIF10C PO
== END 2024-04-01 13:33 | disposition home or self-care (01) ==
LOC: LDRP 11:05
PROVIDERS: ADMIT Obstetrics & Gynecology; ATTEND Obstetrics & Gynecology
DX: O40.3XX0 Polyhydramnios, third trimester, not applicable or unspecified (principal); O47.03 False labor before 37 completed weeks of gestation, third trimester; O26.643 Intrahepatic cholestasis of pregnancy, third trimester; K83.1 Obstruction of bile duct; Z3A.34 34 weeks gestation of pregnancy
CPT/HCPCS: 76818; G0378; 59025; 81002; 94760

== ENCOUNTER 2024-04-04 11:56 | Observation (INO) | payer MEDICAID ==
[~2024-04-04] VITALS: Ht 160 cm; Wt 118.8 kg
== END 2024-04-04 14:28 | disposition home or self-care (01) ==
LOC: UNDOADMOB 11:56 → LDRP 11:56 → UNDODISOB 14:28
PROVIDERS: ADMIT Obstetrics & Gynecology; ATTEND Obstetrics & Gynecology
DX: O60.03 Preterm labor without delivery, third trimester (principal); O40.3XX0 Polyhydramnios, third trimester, not applicable or unspecified; O26.643 Intrahepatic cholestasis of pregnancy, third trimester; K83.1 Obstruction of bile duct; Z3A.34 34 weeks gestation of pregnancy; Z91.040 Latex allergy status
CPT/HCPCS: 59025; 76818; 81002; 94760; G0378

== ENCOUNTER 2024-04-08 11:43 | Observation (INO) | payer MEDICAID | END 2024-04-08 15:05 | disposition home or self-care (01) | LOC: UNDOADMOB 11:43 → LDRP 11:43 → UNDODISOB 15:05 | PROVIDERS: ADMIT Obstetrics & Gynecology; ATTEND Obstetrics & Gynecology | DX: O26.643 Intrahepatic cholestasis of pregnancy, third trimester (principal); K83.1 Obstruction of bile duct; O40.3XX0 Polyhydramnios, third trimester, not applicable or unspecified; H53.8 Other visual disturbances; Z3A.34 34 weeks gestation of pregnancy | CPT/HCPCS: 59025; 76818; 81002; G0378 ==

== ENCOUNTER 2024-04-11 11:55 | Observation (INO) | payer MEDICAID | END 2024-04-11 13:43 | disposition home or self-care (01) | LOC: UNDOADMOB 11:55 → LDRP 11:55 | PROVIDERS: ADMIT Obstetrics & Gynecology; ATTEND Obstetrics & Gynecology | DX: O40.3XX0 Polyhydramnios, third trimester, not applicable or unspecified (principal); O26.643 Intrahepatic cholestasis of pregnancy, third trimester; K83.1 Obstruction of bile duct; O60.03 Preterm labor without delivery, third trimester; Z3A.35 35 weeks gestation of pregnancy | CPT/HCPCS: 59025; 76818; 81002; G0378 ==

== ENCOUNTER 2024-04-15 08:34 | Observation (INO) | payer MEDICAID | END 2024-04-15 14:42 | disposition home or self-care (01) | LOC: EDSTATUS 11:46 → LDRP 11:47 | PROVIDERS: ADMIT Obstetrics & Gynecology; ATTEND Obstetrics & Gynecology | DX: O40.3XX0 Polyhydramnios, third trimester, not applicable or unspecified (principal); O26.643 Intrahepatic cholestasis of pregnancy, third trimester; K83.1 Obstruction of bile duct; Z3A.35 35 weeks gestation of pregnancy; Z98.890 Other specified postprocedural states | CPT/HCPCS: 59025; 76818; 81002; 94760; G0378 ==

== ENCOUNTER 2024-04-18 11:00 | Observation (INO) | payer MEDICAID | END 2024-04-18 13:20 | disposition home or self-care (01) | LOC: LDRP 11:00 → UNDOADMOB 11:00 → LDRP 11:17 | PROVIDERS: ADMIT Obstetrics & Gynecology; ATTEND Obstetrics & Gynecology | DX: O40.3XX0 Polyhydramnios, third trimester, not applicable or unspecified (principal); O26.643 Intrahepatic cholestasis of pregnancy, third trimester; K83.1 Obstruction of bile duct; Z3A.36 36 weeks gestation of pregnancy | CPT/HCPCS: 59025; 76818; 81002; 94760; G0378 ==

== ENCOUNTER 2024-04-23 03:59 | Inpatient (IN) | payer MEDICAID ==
[2024-04-22 11:31] LABS: Urine Bacteria None Seen /hpf (None Seen)
[2024-04-22 11:41] LABS: Basophils # (auto) 0 10 ^3/uL (0-0.2); Basophils % (auto) 0.2 % (0.0-2.0); Eosinophils # (auto) 0 10 ^3/uL (0-0.8); Eosinophils % (auto) 0.3 % (0.0-7.0); Hematocrit 34.5 % (36.0-46.0); Mean Corpuscular Hemoglobin 34.2 pg (28.0-32.0); Mean Corpuscular Hgb Conc. 34.8 g/dL (32.0-36.0); Mean Corpuscular Volume 98.4 fL (80.0-100.0); Monocytes # (auto) 0.5 10 ^3/uL (0-1.3); Monocytes % (auto) 6.6 % (0.0-12.0); Neutrophils # (auto) 5.8 10 ^3/uL (1.6-8.6); Neutrophils % (auto) 78.9 % (37.0-80.0); Nucleated Red Blood Cells % 0.2 %; Red Cell Distribution Width 15.3 % (11.8-14.3); White Blood Cell 7.4 10^3/uL (4.4-10.8)
[2024-04-22 11:49] LABS: Albumin 3.8 g/dL (3.2-4.8); Alkaline Phosphatase 110 U/L (46-116); Anion Gap 8 (5-15); Aspartate Aminotransferase 10 U/L (13-40); BUN/Creatinine Ratio 16.7 (10.0-20.0); Blood Urea Nitrogen 9 mg/dL (9-23); Carbon Dioxide 21 mmol/L (20-30); Chloride 107 mmol/L (98-107); Glucose 80 mg/dL (74-106); Potassium 3.5 mmol/L (3.5-5.1); Sodium 136 mmol/L (136-145)
[2024-04-22 11:50] LABS: Bilirubin, Total 0.5 mg/dL (0.2-1.0); Total Protein 6.3 g/dL (5.7-8.2)
[2024-04-22 11:54] LABS: Alanine Aminotransferase < 9 U/L (7-40)
[2024-04-22 11:58] LABS: INR 0.96 (0.9-1.15); Partial Thromboplastin Time 26.7 SEC (24.5-34.5); Prothrombin Time 10.2 sec (9.3-11.8)
[2024-04-22 12:04] LABS: Urine Blood Negative /uL (Negative); Urine Clarity Turbid (Clear); Urine Color Yellow (Yellow); Urine Mucus FEW (None Seen); Urine Protein, UAD 1+ (Negative); Urine Specific Gravity 1.034 (1.001-1.035); Urine Urobilinogen 4 mg/dL (Negative); Urine WBC 4 /hpf (0 - 5)
[2024-04-22 12:17] LABS: Amphetamine Screen, Urine Neg (NEGATIVE); Barbiturate Scree,Urine Neg (NEGATIVE); Benzodiazephine Screen, Urine Neg (NEGATIVE)
[2024-04-22 12:18] LABS: Cannabinoid Screen, Urine Neg (NEGATIVE); Cocaine Screen, Urine Neg (NEGATIVE); Opiate Scree,Urine Neg (NEGATIVE); Phencyclidine Screen, Urine Neg (NEGATIVE)
[~2024-04-23] VITALS: Ht 162.6 cm; Wt 117.9 kg
[2024-04-23] VITALS (19 sets, daily range): BP systolic 90–125; BP diastolic 45–80; PULSE 50–85; RESP 16–18; TEMP 97.5–98.1; O2SAT 90–99
[2024-04-23] MEDS: LACTATED RINGER'S 1,000 ML IV ONE (04:45)
[2024-04-23] MEDS: LACTATED RINGER'S 1,000 ML IV SCH (05:21)
[2024-04-23] MEDS ORDERED: SODIUM CHLORIDE LOCK 10 ML ONE (06:49)
[2024-04-23] MEDS ORDERED: ONDANSETRON HCL 4 MG/2 ML VIAL ONE (06:50)
[2024-04-23] MEDS ORDERED: oxyTOCIN 10 UNIT/ML 10ML VIAL ONE (06:50)
[2024-04-23] MEDS ORDERED: DexAMETHasone SOD PHOS 10MG/1ML VIAL INJ ONE (06:50)
[2024-04-23] MEDS ORDERED: MORPHINE SULF PF 5 MG/10 ML VIAL ONE (06:51)
[2024-04-23] MEDS ORDERED: fentaNYL CITRATE 100 MCG/2 ML VL ONE (06:52)
[2024-04-23] MEDS: ceFAZolin 2 GM/D5W50ml 50 ML IV ONE (06:58)
[2024-04-23] MEDS ORDERED: IBUP-1456 PO (07:07)
[2024-04-23] MEDS ORDERED: HYDR-4902 PO (07:07)
[2024-04-23] MEDS ORDERED: DOCU-94 PO (07:07)
[2024-04-23] MEDS: GUM (CHEWING) 1 GUM CHEW CHEW ONE (07:15)
[2024-04-23] MEDS ORDERED: ONDANSETRON HCL 4 MG/2 ML VIAL IV PRN ×2 (07:15→08:30)
[2024-04-23] MEDS ORDERED: NALOXONE HCL 0.4 MG/ML VIAL IV PRN (08:30)
[2024-04-23] MEDS ORDERED: HYDROmorphone HCL 2 MG/ML VL/or syr IV PRN (08:30)
[2024-04-23] MEDS: diphenhdrAMINE HCL 50 MG/1 ML VL IV PRN (09:50)
[2024-04-23] MEDS: LACT. RINGERS/OXYTOCIN 20UNITS 1,000 ML IV ONE (10:24)
[2024-04-23] MEDS: NALBUPHINE HCL 10 MG/1ml INJECTION IV ONE (10:24)
[2024-04-23] MEDS: ceFAZolin 1GM/50ML 50 ML IV SCH (15:56)
[2024-04-23 22:06] LABS: Basophils # (auto) 0 10 ^3/uL (0-0.2); Basophils % (auto) 0.1 % (0.0-2.0); Eosinophils # (auto) 0 10 ^3/uL (0-0.8); Hematocrit 32.6 % (36.0-46.0); Hemoglobin 11.1 g/dL (12.2-16.2); Lymphocytes # (auto) 1.2 10 ^3/uL (0.4-5.4); Lymphocytes % (auto) 11.4 % (10.0-50.0); Mean Corpuscular Hemoglobin 33.2 pg (28.0-32.0); Mean Corpuscular Hgb Conc. 34.1 g/dL (32.0-36.0); Mean Corpuscular Volume 97.2 fL (80.0-100.0); Monocytes # (auto) 0.4 10 ^3/uL (0-1.3); Monocytes % (auto) 4.3 % (0.0-12.0); Neutrophils # (auto) 8.6 10 ^3/uL (1.6-8.6); Neutrophils % (auto) 84.2 % (37.0-80.0); Nucleated Red Blood Cells % 0.1 %; Red Blood Cells 3.36 10^6/uL (4.0-5.20); Red Cell Distribution Width 15.7 % (11.8-14.3); White Blood Cell 10.2 10^3/uL (4.4-10.8)
[2024-04-23] MEDS ORDERED: ACETAMINOPHEN IV 1000 MG/100ML (10MG/ML) IV PRN (23:30)
[2024-04-24] VITALS (13 sets, daily range): BP systolic 86–126; BP diastolic 42–75; PULSE 57–79; RESP 16–18; TEMP 97.8–99.4; O2SAT 95–100
[2024-04-24] MEDS ORDERED: ACETAMINOPHEN IV 1000 MG/100ML (10MG/ML) IV PRN (00:45)
[2024-04-24] MEDS: ACETAMINOPHEN IV 1000 MG/100ML (10MG/ML) IV PRN (01:21)
[2024-04-24] MEDS ORDERED: HYDROcodone-ACET 5/325MG TAB PO PRN (07:15)
[2024-04-24 07:19] LABS: Basophils # (auto) 0 10 ^3/uL (0-0.2); Basophils % (auto) 0.3 % (0.0-2.0); Eosinophils # (auto) 0 10 ^3/uL (0-0.8); Eosinophils % (auto) 0.2 % (0.0-7.0); Hemoglobin 11.6 g/dL (12.2-16.2); Lymphocytes # (auto) 1.3 10 ^3/uL (0.4-5.4); Lymphocytes % (auto) 14.6 % (10.0-50.0); Mean Corpuscular Hemoglobin 33.2 pg (28.0-32.0); Mean Corpuscular Hgb Conc. 34.3 g/dL (32.0-36.0); Monocytes # (auto) 0.6 10 ^3/uL (0-1.3); Monocytes % (auto) 6.3 % (0.0-12.0); Neutrophils # (auto) 7.1 10 ^3/uL (1.6-8.6); Neutrophils % (auto) 78.6 % (37.0-80.0); Nucleated Red Blood Cells % 0.1 %; Red Cell Distribution Width 14.9 % (11.8-14.3); White Blood Cell 9.1 10^3/uL (4.4-10.8)
[2024-04-24] MEDS: DOCUSATE SOD 100 MG CAP PO SCH (10:20)
[2024-04-24] MEDS: DOCUSATE CALCIUM 240 MG CAP PO SCH (10:20)
[2024-04-24] MEDS: HYDROcodone-ACET 5/325MG TAB PO PRN (10:21)
[2024-04-24] MEDS: SIMETHICONE 80 MG CHEWABLE TABLET PO SCH (11:34)
[2024-04-24] MEDS: IBUPROFEN 800 MG TAB PO PRN (19:44)
[2024-04-24] MEDS ORDERED: IBUP-1456 PO (23:37)
[2024-04-25 03:00] VITALS: BP 125/68; PULSE 69; RESP 14; TEMP 98.7; O2SAT 96
== END 2024-04-25 09:40 | disposition home or self-care (01) | DRG 539 ==
LOC: LDRP 03:59
PROVIDERS: ADMIT Obstetrics & Gynecology; ATTEND Obstetrics & Gynecology
PROC: 0UL70CZ Occlusion of Bilateral Fallopian Tubes with Extraluminal Device, Open Approach (ICD-10-PCS; 2024-04-23)
PROC: 10D00Z1 Extraction of Products of Conception, Low, Open Approach (ICD-10-PCS; principal; 2024-04-23 07:12)
DX: O34.211 Maternal care for low transverse scar from previous cesarean delivery (principal); O26.643 Intrahepatic cholestasis of pregnancy, third trimester; K76.89 Other specified diseases of liver; O40.3XX0 Polyhydramnios, third trimester, not applicable or unspecified; O99.214 Obesity complicating childbirth; O99.62 Diseases of the digestive system complicating childbirth; Z3A.37 37 weeks gestation of pregnancy; Z37.0 Single live birth; E66.01 Morbid (severe) obesity due to excess calories; N73.6 Female pelvic peritoneal adhesions (postinfective); Z30.2 Encounter for sterilization
CPT/HCPCS: 36415; 59025; 80053; 80307; 81001; 85025; 85610; 85730; 86592; 86803; 86850; 86900; 86901; 87340; 94760; 94762; 96360; 96361; G0378; J0131; J1100; J2405; J2590

== ENCOUNTER 2024-05-05 21:08 | Emergency (ER) | payer MEDICAID ==
[~2024-05-05] VITALS: Ht 162.6 cm; Wt 111.4 kg
[~2024-05-05 21:08] MED LIST changes: +DOCU-94 PO; +HYDR-4902 PO; +IBUP-1456 PO; -NIF10C PO; -URSO300C2 PO
[2024-05-05 23:58] VITALS: BP 133/83; PULSE 91; RESP 19; TEMP 98; O2SAT 97
== END 2024-05-06 01:37 | disposition home or self-care (01) ==
LOC: ER 21:08
DX: R59.0 Localized enlarged lymph nodes (principal); Z90.49 Acquired absence of other specified parts of digestive tract
CPT/HCPCS: 70490

== ENCOUNTER 2024-05-11 20:37 | Emergency (ER) | payer MEDICAID ==
[~2024-05-11] VITALS: Ht 162.6 cm; Wt 111.3 kg
[2024-05-11] MEDS: diphenhdrAMINE HCL 25 MG CAP PO ONE (21:41)
[2024-05-11] MEDS: HYDROcodone-ACET 10/325MG TAB PO ONE (21:41)
[2024-05-11] MEDS: DexAMETHasone SOD PHOS 10MG/1ML VIAL INJ IM ONE (21:42)
[2024-05-11 22:24] LABS: Basophils # (auto) 0 10 ^3/uL (0-0.2); Basophils % (auto) 0.4 % (0.0-2.0); Eosinophils # (auto) 0.2 10 ^3/uL (0-0.8); Hematocrit 38.7 % (36.0-46.0); Lymphocytes # (auto) 1.4 10 ^3/uL (0.4-5.4); Lymphocytes % (auto) 16.1 % (10.0-50.0); Mean Corpuscular Hgb Conc. 33.5 g/dL (32.0-36.0); Mean Corpuscular Volume 95.5 fL (80.0-100.0); Monocytes # (auto) 0.5 10 ^3/uL (0-1.3); Monocytes % (auto) 5.9 % (0.0-12.0); Neutrophils # (auto) 6.4 10 ^3/uL (1.6-8.6); Neutrophils % (auto) 75.6 % (37.0-80.0); Nucleated Red Blood Cells % 0.1 %; Platelet Count (auto) 263 10^3/uL (140-450); Red Blood Cells 4.05 10^6/uL (4.0-5.20); White Blood Cell 8.5 10^3/uL (4.4-10.8)
[2024-05-11 22:36] LABS: Alanine Aminotransferase 10 U/L (7-40); Albumin 4.1 g/dL (3.2-4.8); Alkaline Phosphatase 145 U/L (46-116); Anion Gap 6 (5-15); Aspartate Aminotransferase 17 U/L (13-40); BUN/Creatinine Ratio 11.3 (10.0-20.0); Bilirubin, Total 0.5 mg/dL (0.2-1.0); Blood Urea Nitrogen 9 mg/dL (9-23); Calcium 9.5 mg/dL (8.7-10.4); Carbon Dioxide 23 mmol/L (20-30); Chloride 112 mmol/L (98-107); Glucose 90 mg/dL (74-106); Potassium 3.5 mmol/L (3.5-5.1); Sodium 141 mmol/L (136-145); Total Protein 6.9 g/dL (5.7-8.2)
[2024-05-11 22:45] LABS: CRP High Sensitivity 1.12 mg/dL (<1.0)
[2024-05-12 01:34] VITALS: BP 127/56; PULSE 81; RESP 17; TEMP 98; O2SAT 96
[2024-05-12] MEDS ORDERED: PRAM1LOT45 EX (01:38)
[2024-05-12] MEDS: hydrOXYzine 25 MG TAB or CAP PO ONE (01:57)
[2024-05-12] MEDS ORDERED: IOHEXOL 300 MG/ML 100ML BOTTLE IJ ONE (05:45)
== END 2024-05-12 02:00 | disposition home or self-care (01) ==
LOC: ER 20:37
DX: R59.9 Enlarged lymph nodes, unspecified (principal); L30.9 Dermatitis, unspecified; Z79.1 Long term (current) use of non-steroidal anti-inflammatories (NSAID); Z90.49 Acquired absence of other specified parts of digestive tract
CPT/HCPCS: 36415; 70491; 80053; 85025; 86141; 96372; 99285; J1100; Q9967